=== PATIENT | male | born 1975 | race Caucasian/White ===

== ENCOUNTER 2019-07-31 13:03 | Emergency (ER) | payer OTHER ==
[2019-07-31] MEDS ORDERED: cloNIDine HCL 0.1 MG TAB ONE (15:21)
[2019-07-31 15:30] LABS: Hematocrit 47.8 % (39.6-49.0); Lymphocytes % 27.4 % (15.3-44.8); MPV 9.2 fL (7.6-11.3); RBC Red Blood Cell Count 5.47 M/uL (4.33-5.43)
[2019-07-31 16:00] LABS: BUN Blood Urea Nitrogen 10 mg/dL (7-18); Bicarbonate 24 mmol/L (21-32); Glucose Level 97 mg/dL (74-106); Sodium Level 140 mmol/L (136-145); Troponin (Emerg Dept Use Only) < 0.02 ng/mL (0.0-0.045)
[2019-07-31 16:01] LABS: Potassium 4.3 mmol/L (3.5-5.1)
--- NOTE | 2019-07-31 16:44 | RAD REPORT ---
EXAM DESCRIPTION: Anne Marie Angio07/31/2019 4:16 pm CLINICAL HISTORY: Blurred vision COMPARISON: None TECHNIQUE: 50 cc Isovue 370 was administered intravenously. 3D MIP reconstruction performed All CT scans are performed using dose optimization technique as appropriate and may include automated exposure control or mA/KV adjustment according to patient size. FINDINGS: The common, internal and external carotid arteries bilaterally do not demonstrate plaque. No stenosis Vertebral arteries are codominant without abnormality. No aneurysm noted IMPRESSION: Unremarkable exam NASCET criteria used. Mild 0-49% stenosis Moderate 50-69% stenosis Severe 70-99% stenosis
--- NOTE | 2019-07-31 16:44 | RAD REPORT ---
EXAM DESCRIPTION: CTHead angio07/31/2019 4:16 pm CLINICAL HISTORY: Visual disturbance COMPARISON: None TECHNIQUE: CT angiogram of the head was obtained. 3D MIPS reconstruction performed. All CT scans are performed using dose optimization technique as appropriate and may include automated exposure control or mA/KV adjustment according to patient size. FINDINGS: The basilar, internal carotid, anterior cerebral, middle cerebral and posterior cerebral a rteries are normal caliber. An aneurysm is not seen. A significant stenosis is not noted. IMPRESSION: Unremarkable CT angiogram head.
--- NOTE | 2019-07-31 16:45 | RAD REPORT ---
EXAM DESCRIPTION: CT - Head Brain Wo Cont - 07/31/2019 4:16 pm CLINICAL HISTORY: Blurred vision COMPARISON: None. TECHNIQUE: Computed axial tomography of the head was obtained. IV contrast was not requested. All CT scans are performed using dose optimization technique as appropriate and may include automated exposure control or mA/KV adjustment according to patient size. FINDINGS: An intracranial bleed is not seen . The ventricles are normal in caliber. No extra-axial fluid collection is noted. Fluid within the sinuses/ mastoids is not seen. IMPRESSION: No acute intracranial abnormality is seen. If patient's symptoms persist MRI of the bra in would be recommended.
--- NOTE | 2019-07-31 17:25 | ER ---
Nurse's Notes [facility] Name: Justice Best Age: 44 yrs Sex: Male : 1975 Arrival Date: 07/31/2019 Time: 13:05 Bed 20 Private MD: Diagnosis: Dizziness and giddiness;Hypertension Presentation: 07/30 13:29 Chief complaint: Patient states: I've been really dizzy for the past week and my BP is ca1 really high. I am also experiencing blurry vision on both eyes for about a week. Denies N/V. Coronavirus screen: Proceed with normal triage. Patient denies a cough. Patient denies shortness of breath or difficulty breathing. Patient denies measured and/or subjective temperature greater than 100.4F prior to today's visit. Patient denies travel on a cruise ship or to a country the [facility] currently lists as an affected area. Patient denies contact with known and/or suspected case of COVID-19. Ebola Screen: Patient negative for fever greater than or equal to 101.5 degrees Fahrenheit, and additional compatible Ebola Virus Disease symptoms Patient denies exposure to infectious person. Patient denies travel to an Ebola-affected area in the 21 days before illness onset. No symptoms or risks identified at this time. Initial Sepsis Screen: Does the patient meet any 2 criteria? RR > 20 per min. Does the patient have a suspected source of infection? No. Patient's initial sepsis screen is negative. Risk Assessment: Do you want to hurt yourself or someone else? Patient reports no desire to harm self or others. Onset of symptoms was July 31, 2019. 13:29 Method Of Arrival: Ambulatory ca1 13:29 Acuity: VIRGILIO 3 ca1 Triage Assessment: 16:14 General: Appears in no apparent distress. comfortable, Behavior is calm, cooperative. ls4 Pain: Denies pain. Neuro: Reports blurred vision diplopia, dizziness, photophobia. Neuro: No deficits noted. Cardiovascular: No deficits noted. Denies chest pain. Respiratory: Reports cough that is non-productive, dry, hacking, persistent Airway is patent Respiratory effort is even, unlabored, Respiratory pattern is regular, Breath sounds are clear bilaterally. GI: No deficits noted. No signs and/or symptoms were reported involving the gastrointestinal system. : No deficits noted. No signs and/or symptoms were reported regarding the genitourinary system. Derm: No deficits noted. No signs and/or symptoms reported regarding the dermatologic system. Historical: - Allergies: 13:31 No Known Allergies; ca1 - Home Meds: 13:31 None [Active]; ca1 - PMHx: 13:31 None; ca1 - PSHx: 13:31 None; ca1 - Immunization history:: Adult Immunizations up to date. - Social history:: Smoking status: Patient denies any tobacco usage or history of. - Family history:: not pertinent. - Hospitalizations: : No recent hospitalization is reported. Screenin:24 Abuse screen: Denies threats or abuse. Denies injuries from another. Nutritional ls4 screening: No deficits noted. Tuberculosis screening: No symptoms or risk factors identified. Fall Risk None identified. Assessment: 14:00 General: Appears in no apparent distress. uncomfortable, Behavior is calm, cooperative. ls4 14:00 Neuro: Reports blurred vision dizziness. Cardiovascular: Reports lightheadedness, ls4 Denies chest pain. Respiratory: Airway is patent Respiratory effort is even, unlabored, Respiratory pattern is regular, Breath sounds are clear bilaterally. Denies cough, shortness of breath labored breathing. GI: No deficits noted. No signs and/or symptoms were reported involving the gastrointestinal system. : No deficits noted. No signs and/or symptoms were reported regarding the genitourinary system. Derm: Skin is intact, is healthy with good turgor, Skin is dry, Skin is normal, Skin temperature is warm. Vital Signs: 13:29 BP 159 / 93; Pulse 93; Resp 15 S; Temp 97.2(TE); Pulse Ox 99% on R/A; Weight 111.13 kg ca1 (R); Height 6 ft. (182.88 cm) (R); 14:23 BP 143 / 108; Pulse 85; Resp 16; Pulse Ox 99% on R/A; ls4 15:30 BP 156 / 98; Pulse 85; Resp 20; Pulse Ox 99% on R/A; Pain 0/10; ls4 13:29 Body Mass Index 33.23 (111.13 kg, 182.88 cm) ca1 ED Course: 13:05 Patient arrived in ED. ag5 13:31 Triage completed. ca1 13:31 Arm band placed on right wrist. ca1 13:59 Daylin Louis, RN is Primary Nurse. ls4 14:00 Patient has correct armband on for positive identification. Bed in low position. Call ls4 light in reach. Side rails up X 1. front desk monitor on. Pulse ox on. NIBP on. 14:00 Verbal reassurance given. ls4 14:14 Ricardo Clay MD is Attending Physician. rn 15:23 CT Neck Angio Sent. ls4 15:24 No provider procedures requiring assistance completed. Initial lab(s) drawn, by ct, ls4 sent to lab. Inserted saline lock: 22 gauge in right upper arm, using aseptic technique. Blood collected. Patient maintains SpO2 saturation greater than 95% on room air. 16:16 CT Head Brain wo Cont In Process Unspecified. EDMS 16:16 CT Head Angio In Process Unspecified. EDMS 16:16 CT Neck Angio In Process Unspecified. EDMS 17:40 IV discontinued, intact, bleeding controlled, No redness/swelling at site. Pressure ls4 dressing applied. Administered Medications: 15:23 Drug: cloNIDine 0.1 mg Route: PO; ls4 16:13 Follow up: Response: No adverse reaction; Marked relief of symptoms ls4 Outcome: 17:24 Discharge ordered by . rn 17:46 Patient left the ED. ls4 17:46 Discharged to home ambulatory, with family. ls4 17:46 Condition: stable ls4 17:46 Discharge instructions given to patient, family, Instructed on discharge instructions, ls4 follow up and referral plans. medication usage, Demonstrated understanding of instructions, follow-up care, medications, Prescriptions given X 1. Signatures: Dispatcher [employer] EDNC Ricardo Clay MD MD rn Stewart, Lisa, RN RN ls4 Alma Germain RN RN ca1 Miguel Alexander 5 Corrections: (The following items were deleted from the chart) 06 00:51 0623 18:30 Patient left the ED. ls4 ls4
--- NOTE | 2019-07-31 17:25 | EDPHYS ---
Physician Documentation [facility] Name: Justice Ramirez Age: 44 yrs Sex: Male : 1975 Arrival Date: 07/31/2019 Time: 13:05 Bed 20 Private MD: ED Physician Ricardo Clay HPI: 07/30 15:02 This 44 yrs old Male presents to ER via Ambulatory with complaints of rn Dizziness, High Blood Pressure. 15:02 The patient presents with dizziness, sense of spinning. Onset: The symptoms/episode rn began/occurred 2 week(s) ago. Context: occurred at home, occurred while the patient was exercising. Modifying factors: The symptoms are alleviated by nothing, the symptoms are aggravated by movement of head, changing position. Severity of symptoms: At their worst the symptoms were mild in the emergency department the symptoms are unchanged. The patient has not experienced similar symptoms in the past. The patient has not recently seen a physician. Reports dizziness, neck pain for a couple of weeks, no fever, began while exercising at home, not heavy weight. Reports has noticed that BP has been running high, reports lowest BP recorded was 140s systolic. No chest pain/sob/abd pain/vomiting/diarrhea/focal neuro problems. . Historical: - Allergies: 13:31 No Known Allergies; ca1 - Home Meds: 13:31 None [Active]; ca1 - PMHx: 13:31 None; ca1 - PSHx: 13:31 None; ca1 - Immunization history:: Adult Immunizations up to date. - Social history:: Smoking status: Patient denies any tobacco usage or history of. - Family history:: not pertinent. - Hospitalizations: : No recent hospitalization is reported. ROS: 15:02 Constitutional: Negative for fever, chills, and weight loss, Eyes: Negative for injury, rn pain, redness, and discharge, Neck: Negative for injury, and swelling, Cardiovascular: Negative for chest pain, palpitations, and edema, Respiratory: Negative for shortness of breath, cough, wheezing, and pleuritic chest pain, Abdomen/GI: Negative for abdominal pain, nausea, vomiting, diarrhea, and constipation, MS/Extremity: Negative for injury and deformity, Skin: Negative for injury, rash, and discoloration, Neuro: Negative for headache, numbness, tingling, and seizure. Exam: 15:02 Constitutional: This is a well developed, well nourished patient who is awake, alert, rn and in no acute distress. Sitting upright on edge of bed. Head/Face: Normocephalic, atraumatic. Eyes: Pupils equal round and reactive to light, extra-ocular motions intact. Lids and lashes normal. Conjunctiva and sclera are non-icteric and not injected. Cornea within normal limits. Periorbital areas with no swelling, redness, or edema. Neck: Trachea midline, no thyromegaly or masses palpated, and no cervical lymphadenopathy. Supple, full range of motion without nuchal rigidity, or vertebral point tenderness. No Meningismus. Cardiovascular: Regular rate and rhythm. No pulse deficits. Respiratory: Speaking full sentences. No increased work of breathing, no retractions or nasal flaring. Skin: Warm, dry MS/ Extremity: Pulses equal, no cyanosis. Neurovascular intact. Full, normal range of motion. Equal circumference. Neuro: Awake and alert, GCS 15, oriented to person, place, time, and situation. Cranial nerves II-XII grossly intact. Motor strength 5/5 in all extremities. Sensory grossly intact. Cerebellar exam normal. Vital Signs: 13:29 BP 159 / 93; Pulse 93; Resp 15 S; Temp 97.2(TE); Pulse Ox 99% on R/A; Weight 111.13 kg ca1 (R); Height 6 ft. (182.88 cm) (R); 14:23 BP 143 / 108; Pulse 85; Resp 16; Pulse Ox 99% on R/A; ls4 15:30 BP 156 / 98; Pulse 85; Resp 20; Pulse Ox 99% on R/A; Pain 0/10; ls4 13:29 Body Mass Index 33.23 (111.13 kg, 182.88 cm) ca1 MDM: 14:14 Patient medically screened. rn 17:23 Differential diagnosis: idiopathic dizziness, carotid/basilar dissection, CVA, HTN rn emergency. Data reviewed: vital signs, nurses notes, lab test result(s), EKG, radiologic studies, CT scan, and as a result, I will discharge patient. Counseling: I had a detailed discussion with the patient and/or guardian regarding: the historical points, exam findings, and any diagnostic results supporting the discharge/admit diagnosis, lab results, radiology results, the need for outpatient follow up, to return to the emergency department if symptoms worsen or persist or if there are any questions or concerns that arise at home. Counseling: I had a detailed discussion with the patient and/or guardian regarding: the presence of at least one elevated blood pressure reading (>120/80) during this emergency department visit. Response to treatment: the patient's symptoms have mildly improved after treatment, and as a result, I will discharge patient. Special discussion: I have referred the patient to see his PCP for further evaluation of high blood pressure. I discussed with the patient/guardian in detail that at this point there is no indication for admission to the hospital. It is understood, however, that if the symptoms persist or worsen the patient needs to return immediately for re-evaluation. 07/30 14:24 Order name: CBC with Diff; Complete Time: 15:33 rn 07/30 14:24 Order name: Basic Metabolic Panel; Complete Time: 16:01 rn 07/30 14:24 Order name: Troponin (emerg Dept Use Only); Complete Time: 16:01 rn 07/30 14:24 Order name: CT Head Brain wo Cont; Complete Time: 16:51 rn 07/30 14:24 Order name: CT Head Angio; Complete Time: 16:51 rn 07/30 14:24 Order name: CT Neck Angio; Complete Time: 16:51 rn 07/30 14:24 Order name: IV Start; Complete Time: 15:24 rn 07/30 14:24 Order name: EKG; Complete Time: 14:25 rn 07/30 14:24 Order name: EKG - Nurse/Tech; Complete Time: 16:13 rn Administered Medications: 15:23 Drug: cloNIDine 0.1 mg Route: PO; ls4 16:13 Follow up: Response: No adverse reaction; Marked relief of symptoms ls4 Disposition: 07/31/19 17:24 Discharged to Home. Impression: Dizziness and giddiness, Hypertension. - Condition is Stable. - Discharge Instructions: Dizziness, Hypertension. - Prescriptions for Hydrochlorothiazide 50 mg Oral Tablet - take 1 tablet by ORAL route once daily; 30 tablet. - Medication Reconciliation Form, Thank You Letter, Antibiotic Education, Prescription Opioid Use form. - Follow up: Private Physician; When: As needed; Reason: Recheck today's complaints, Re-evaluation by your physician. - Problem is an ongoing problem. - Symptoms have improved. Signatures: Dispatcher [employer] EDRicardo Davey MD MD rn Stewart, Lisa, RN RN ls4 Alma Germain RN RN ca1 Corrections: (The following items were deleted from the chart) 18:30 17:24 07/31/2019 17:24 Discharged to Home. Impression: Dizziness and giddiness; ls4 Hypertension. Condition is Stable. Forms are Medication Reconciliation Form, Thank You Letter, Antibiotic Education, Prescription Opioid Use. Follow up: Private Physician; When: As needed; Reason: Recheck today's complaints, Re-evaluation by your physician. Problem is an ongoing problem. Symptoms have improved. rn
[2019-08-01 10:27] VITALS: TEMP 97.2; O2SAT 99
[2019-08-01 10:30] VITALS: BP 156/98
--- NOTE | 2019-08-01 12:24 | EKG ---
Test Date: 2019-07-31 Test Time: 16:26:10 Global Product Manager: VINICIO MEASUREMENT RESULTS: Intervals: Rate: 85 MD: 168 QRSD: 88 QT: 384 QTc: 456 [place]: P: 48 MD: 168 QRS: 4 T: 54 INTERPRETIVE STATEMENTS: Normal sinus rhythm Normal ECG Compared to ECG 04/19/2014 11:03:57 Sinus tachycardia no longer present Early repolarization no longer present Electronically Signed On 08-01-19 12:22:25 CDT by Jorge Houston
== END 2019-07-31 18:30 | disposition home or self-care (01) ==
LOC: ER 13:03
DX: I10 Essential (primary) hypertension (principal)
CPT/HCPCS: 93005; 85025; 80048; 36415; 84484; 70450; 70496; 70498; 99285; Q9967